=== PATIENT | male | born 1970 ===

== ENCOUNTER 2025-07-30 14:14 | Outpatient (AMB) | payer OTHER, SELFPAY ==
--- NOTE | 2025-07-30 14:15 | A.OFFPC_ITS ---
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 fam history of family lung cancer mother and sister now. 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[employer] Required: No Accompanied by: Self / Same As Patient Allergies No Known Allergies Allergy (Verified 07/30/25 14:15) Tobacco use date assessed: 07/30/25 Dental Screening Dental Screen Date: 07/30/25 Did you have a dental visit in the last 12 months?: Yes Did you have a dental problem in the last 6 months where you did not have access to dental care?: No Was dental information given to patient?: Patient has dentist HPI HPI Comments History of Present Illness Details History of Present Illness The patient is a 54-year-old male presenting for establishment of care with a new primary care physician. Patient was rude and abruptly got up and left because he was upset that I was asking about his past medical history and the medication he is taking he just stormed out of the room and left. [facility] Family History (Updated 07/30/25 @ 14:23 by Bonnie Dean MA) Father Cancer Mother Lung cancer Social History (Updated 07/30/25 @ 14:25 by Bonnie Dean MA) Housing: Apartment Alcohol intake: current Alcohol intake frequency: does not drink Patient Tobacco Use Status: Current everyday Tobacco user Cigarettes Per Day: 15 Substance Use Type: Marijuana service: No Current occupational status: employed Cognitive needs: No Hearing needs: No Vision needs: Yes (rx glasses) Questionnaire PHQ-9 Over the last 2 weeks, how often have you been bothered by any of the following problems? 1. Little interest or pleasure in doing things: not at all 2. Feeling down, depressed, or hopeless: not at all 3. Trouble falling or staying asleep, or sleeping too much: not at all 4. Feeling tired or having little energy: not at all 5. Poor appetite or overeating: not at all 6. Feeling bad about yourself - or that you are a failure or have let yourself or your family down: not at all 7. Trouble concentrating on things, such as reading the newspaper or watching television: not at all 8. Moving or speaking so slowly that other people could have noticed. Or the opposite - being so fidgety or restless that you have been moving around a lot more than usual: not at all 9. Thoughts that you would be better off or of hurting yourself in some way: not at all Total score: 0 Depression Screening Interpretation: Negative Depression Screening Done: Yes Source: Developed by Drs. Yaakov Trujillo, Tracy Milner, Gonzales Nichole and colleagues, with an educational suraj from [employer]. Thrive Questionnaire Date Thrive assessed: 07/30/25 I am a: Patient What is your living situation today?: I have a steady place to live Within the past 12 months, did the food you bought not last and you didn't have the money to get more?: Never true Within the past 12 months, did you worry whether your food would run out before you got money to buy more?: Never true Do you have trouble paying for medicines?: I choose not to answer this question Do you have trouble getting transportation to medical appointments?: No Do you have trouble paying your heating and electricity bill?: I choose not to answer this question Do you have trouble taking care of your child, family member or friend?: No Do you have trouble with day-to-day activities such as bathing, preparing meals, shopping, managing finances, etc.?: No Are you currently unemployed and looking for a job?: No Are you interested in more education?: I choose not to answer this question Please select the resources that you would like help with: None Currently or been in a relationship where the following occur: No concerns reported THRIVE Score: 0 AUDIT C Alcohol Use Questionnaire (AUDIT-C) 1. How often do you have a drink containing alcohol?: Never 3. How often do you have six or more drinks on one occasion?: Never Total Score: 0 MARCELLUS-7 AMB Questionnaire MARCELLUS-7 Date MARCELLUS - 7 assessed: 07/30/25 Feeling nervous, anxious, or on edge: 0 = Not at all Not being able to stop or control worryin = Not at all Worrying too much about different things: 0 = Not at all Trouble relaxin = Not at all Being so restless that it is hard to sit still: 0 = Not at all Becoming easily annoyed or irritable: 0 = Not at all Feeling afraid as if something awful might happen: 0 = Not at all Total MARCELLUS-7 score (0-4 normal; 5-9 mild; 10-14 moderate; 15-21 severe): 0 Source: Developed by Drs. Yaakov Trujillo, Tracy Milner, Gonzales Nichole and colleagues, with an educational suraj from [employer]. Physical exam (Primary Care) Vital Signs: Last Vital Signs Temp 98.4 F 07/30/25 14:26 Pulse 72 07/30/25 14:26 Resp 16 07/30/25 14:26 BP 100/66 07/30/25 14:26 Pulse Ox 96 07/30/25 14:26 Oxygen Delivery Method Room Air 07/30/25 14:26 BMI result Body Mass Index 22.2 Tobacco/Smoking Status: Tobacco use Status Tobacco use date assessed 07/30/25 07/30/25 14:19 Patient Tobacco Use Status Current everyday Tobacco 07/30/25 14:29 PHQ-9: PHQ-9 Score PHQ-9: Total score 0 07/30/25 14:19 Depression Screening Interpretation: Negative Thrive Assessment: Date of Thrive Assessment Date Thrive assessed 07/30/25 07/30/25 14:19 Currently or been in a relationship where the following occur: No concerns reported Coding Level of Care Code New Pt Level 2 (53231) Diagnoses Encounter to establish care with new provider Z76.89 Aggressive behavior R46.89 Assessment & Plan Assessment & Plan (1) Encounter to establish care with new provider: Code(s): Z76.89 - Persons encountering health services in other specified circumstances (2) Aggressive behavior: Code(s): R46.89 - Other symptoms and signs involving appearance and behavior Plan
[2025-07-30 14:26] VITALS: BP 100/66; PULSE 72; RESP 16; TEMP 36.9; O2SAT 96; BMI 22.2
--- OUTSIDE RECORDS SUMMARY | 2025-07-30 16:07 | XMS_ITS | Clinical Summary ---
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 Role Phone Unavailable Primary Care Provider Unavailabl e Social History Tobacco Use Types Packs/Day Years Used Date Smoking Tobacco: Never Assessed Sex and Gender Information Value Date Recorded Sex Assigned at Not on file Legal Sex Male 1:57 PM EDT Gender Identity Not on file Sexual Orientation Not on file Obstetrics History Plan of Treatment Health Maintenance Due Date Last Done Comments DTaP,Tdap,and Td Vaccines (1 - Tdap) 1990 Hepatitis B Vaccines (1 of 3 - 19+ 3-dose series) 1990 Pneumococcal Vaccine: 50+ Ye ars (1 of 1 - PCV) 2021 Zoster Vaccines (1 of 2) 2021 Depression Screening 11/12/2024 COVID-19 Vaccine (1 - 2023-2 5 season) 2025 Influenza Vaccine (#1) 2025 HIB Vaccines Aged Out No longer eligi ble based on patient's age to complete this topic HPV Vaccines Aged Out No longer eligi ble based on patient's age to complete this topic Hepatitis A Vaccines Aged Out No long er eligible based on patient's age to complete this topic IPV Vaccines Aged Out No longer eligi ble based on patient's age to complete this topic MMR Vaccines Aged Out No longer eligi ble based on patient's age to complete this topic Meningococcal ACWY Vaccine Aged Out N o longer eligible based on patient's age to complete this topic Meningococcal B Vaccine Aged Out No l onger eligible based on patient's age to complete this topic RSV Immunization Patients Un tevin 20 months Aged Out No longer eligible b ased on patient's age to complete this topic Varicella Vaccines Aged Out No longer eligible based on patient's age to complete this topic
== END 2025-07-30 14:57 | disposition home or self-care (01) ==
LOC: HO.HMCFMS 14:15
PROVIDERS: Visit Provider Student in an Organized Health Care Education/Training Program
DX: R46.89 Other symptoms and signs involving appearance and behavior (principal); Z76.89 Persons encountering health services in other specified circumstances

== ENCOUNTER → 2025-07-30 14:14 | Outpatient (BNVA) | payer OTHER, SELFPAY | PROVIDERS: Visit Provider Student in an Organized Health Care Education/Training Program | DX: Z76.89 Persons encountering health services in other specified circumstances (principal); R46.89 Other symptoms and signs involving appearance and behavior; Z13.31 Encounter for screening for depression; Z13.39 Encounter for screening examination for other mental health and behavioral disorders | CPT/HCPCS: 99202 ==

== ENCOUNTER 2025-09-24 14:40 | Outpatient (AMB) | payer OTHER, SELFPAY ==
[2025-09-24 15:24] VITALS: BP 110/62; PULSE 77; TEMP 36.6; O2SAT 98
--- NOTE | 2025-09-24 15:24 | MHC.OFFWIV ---
Intake Vital Signs 09/24/25 15:24 Height 5 ft 10 in BMI Reason not done Patient refused/unable BP 110/62 Blood Pressure Location Lt brachial Position Sitting Pulse 77 Pulse Source Pulse Oximeter Temp 97.8 F Temp Source Oral Pulse Oximetry (%) 98 Oxygen Delivery Method Room Air Intake Visit Reasons: EP-med refill Intake Note: pt is here for refill for atorvastatin Patient Tobacco Use Status: Current everyday Tobacco user Allergies No Known Allergies Allergy (Verified 09/24/25 15:25) Do you need a note to return to daycare/school/sports/work: No HPI HPI Comments History of Present Illness Details History of Present Illness - The patient is a 54-year-old male presenting with a request for a statin medication refill. - Hyperlipidemia: The patient has been on statin therapy for six years, initially prescribed a higher dose which was later reduced to 10 mg daily. - The patient reports adherence to the medication regimen, with the current prescription running out soon. - Family history of cancer: The patient's sister was diagnosed with stage 4 lung cancer and melanoma last year, prompting a recommendation for family screening. He has an appt to [facility] with Kendell Aponte NP in January 2026. Review of Systems All systems reviewed and are unremarkable except as noted in HPI Physical Exam General: Cooperative, healthy appearing, comfortable, no acute distress and well developed Orientation: Patient oriented x3 Limitations: No limitations Head: Normal to inspection Ears: Hearing grossly normal bilaterally Nose: Normal External nose present Face and sinus: Normal facial exam Eyes: Appearance normal, both eyes and all related structures Neck: Normal visual inspection and Yes full ROM Respiratory: Normal respiratory effort and able to speak in complete sentences. Skin: No rashes or lesions noted Neuro: Patient oriented x3 Extremities: Normal to inspection [facility] Family History (Updated 07/30/25 @ 14:23 by Bonnie Dean MA) Father Cancer Mother Lung cancer Social History (Updated 07/30/25 @ 14:25 by Bonnie Dean MA) Housing: Apartment Alcohol intake: current Alcohol intake frequency: does not drink Patient Tobacco Use Status: Current everyday Tobacco user Cigarettes Per Day: 15 Substance Use Type: Marijuana service: No Current occupational status: employed Cognitive needs: No Hearing needs: No Vision needs: Yes (rx glasses) Physical Exam Vital Signs: Last Vital Signs Temp 97.8 F 09/24/25 15:24 Pulse 77 09/24/25 15:24 BP 110/62 09/24/25 15:24 Pulse Ox 98 09/24/25 15:24 Oxygen Delivery Method Room Air 09/24/25 15:24 Assessment & Plan Assessment & Plan (1) Hyperlipidemia: Code(s): E78.5 - Hyperlipidemia, unspecified Qualifiers: Hyperlipidemia type: unspecified Qualified Code(s): E78.5 - Hyperlipidemia, unspecified Plan: Patient was informed and verbally consented to the use of an ambient scribe for clinic note documentation during this visit. - Plan to refill statin prescription for 90 days with one additional refill to bridge him until the his appointment to establish care with his new PCP in January 2026 at [facility]. - Patient advised to follow up with primary care provider for ongoing management and monitoring of lipid levels. Medications: Changed From atorvastatin 5 mg PO DAILY To atorvastatin 10 mg PO DAILY 90 tabs 1RF 90 days Coding Level of Care Code Est Pt Level 3 (88846) Diagnoses Hyperlipidemia, unspecified hyperlipidemia type E78.5 Hyperlipidemia type: unspecified
--- OUTSIDE RECORDS SUMMARY | 2025-09-24 18:00 | XMS_ITS | Clinical Summary ---
Author Organization 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
--- OUTSIDE RECORDS SUMMARY | 2025-09-24 18:01 | XMS_ITS | Data Portability ---
Author Organization [facility] Address [address] [place] [address] Assessment No assessment recorded. Plan of Treatment Reminders Order Date Submit Date Provider Last Modified By Organization Details Last Modified Time Details Appointments None recor ded. Lab None recor ded. Referral None recor ded. Procedures None recor ded. Surgeries None recor ded. Imaging XR, knee, 4 or more view 2023 024 [facility], [address], [address], [place], [address], 4 15:08:31 Medication Orders None recor ded. Patient TargetsNo targets recorded. Patient InstructionsNo instructions recorded. Reason for Referral None Reported. Results Created Date Observation Date Name Description Value Unit Range Abnormal Flag Note LastModifiedBy Organization Detail LastModifiedTime 07/11/20 24 05/16/2021 imagi ng/di agnos tic resul t No observ ation record ed. [email or web address] Not Available 06/14 04:22:05 Result Notes None recorded. Problems Name Problem SNOMED Code Status Onset Date Resolution Date Notes Provider Name and Address Organization Details Recorded Time Chondromala katheryn of joint of left knee [id number] 9102 Active 2023 Peggy Swift i, PA-C [address], [place], [address], [facility] 4 15:13:46 Problem Notes None recorded. Procedures Surgical History Date Name Laterality Status Provider Name and Address Organization Details Recorded Time Shoulder Surgery completed HOLDEN ADAN [facility] 02/20/2024 14:44:48 Imaging Results None recorded. Procedure Notes None recorded. Medical Equipment None Reported. Allergies No known drug allergies Medications Name Sig Start Date Stop Date Status Note LastModified by Organization Details LastModified Time atorvastati n 10 mg tablet TAKE 1 TABLET BY MOUTH EVERY DAY active Not Available Not Available No t Available oxycodone HCl-oxycodo ne-ASA 1 every 4 - 6 hours as needed DO NOT DRIVE WHILE ON THIS MEDICATIO N 02/13 completed Statu s: 'Curr ent'; Not Available Not Available Not Available Vitals Date Recorded Body height Body mass index (BMI) Body weight Provider Name and Address Organization Details Last Updated DateTime 02/20/2024 177.8 cm 23.7 kg/m2 50419.74 g HOLDEN Jaffe [facility] 02/20/2024 14:45:24 Social History Question Answer Notes LastModified by Organizat ion Details LastModified Time Tobacco Smoking Status Former Smoker HOLDEN bonilla [facility] 02/20/2024 14:44:47 Which Illicit Or Recreational Drugs Have You Used? Marijuana Information not available 02/20/2024 When Did You Quit Smoking? 1-5yearssince lastcigarette Information not available 02/20/2024 Which Of Your Hands Is Dominant? Right Information not available 02/20/2024 Have You Ever Been Counseled For Unhealthy Alcohol Use? No Information not available 02/20/2024 What Is Your Relationship Status? Single Information not available 02/20/2024 How Many Years Have You Smoked Tobacco? 20 Information not available 02/20/2024 Sex: Unknown Functional Status Question Answer Note LastModified by Organizat ion Details LastModified Time How many times per week do you consume alcohol? Less than 1 time per week Information not available 02/20/2024 Do you use any illicit or recreational drugs? Yes Information not available 02/20/2024 Do you or have you ever used any other forms of tobacco or nicotine? Yes Information not available 02/20/2024 What is your level of alcohol consumption? Occasional Information not available 02/20/2024 Do you or have you ever used e-cigarettes or vape? Current user of electronic cigarettes Information not available 02/20/2024 Mental Status None recorded. Family History Nothing Reported. Medical History No medical history recorded. Past Encounters Encounter ID Performer Location Encounter Start Date Encounter Closed Date Diagnosis/Indication Diagnosis SNOMED-CT Code Diagnosis ICD10 Code Diagnosis IMO Codes Diagnosis Note [id number] IVAN Jimenez [address] [place] [address] 02/20/2024 14:35:20 02/20/2024 15:08:30 Pain of left knee joint [id number] 05865 M25.562 Chondromal acia of joint of left knee 2524797619 2134184 M94.262 Health Concerns Section Related Observation LastModified by Organization Detai ls LastModified Time None Recorded Concern Status LastModified by Organization Details LastModified Time None Recorded Advance Directives Directive None Recorded Payers Insurance Date Sequence Insurance Name Policy Number Policy Manjarrez Covered Member ID Manjarrez Member ID Guarantor Name 02/19/2024 1 [place] [facility] Cyrus Kelly [id number] Cyrus Kelly 03/04/2024 1 [facility] [employer] - TOGETHER (MEDICAID HMO) [id number] Cyrus Kelly [id number] Cyrus Kelly Notes Date Note Type Note Provider Name and Address Organization Details Recorded Time 02/20/2024 text/html I am seeing the patient today under the supervision of Dr. Lane who was available but who did not see the patient. HPI: 53-year-old male patient presents today for left knee pain. Denies injury. 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 He reports being evaluated for this in our office previously, no treatment. Denies previous knee surgeries. Past family, social history and review of systems has been reviewed, updated and is located in the patient s chart. X-RAYS: 4v X-rays of the Left knee were ordered, obtained and reviewed today at [facility] AP and Boyd views demonstrate mild medial compartment space narrowing bilaterally. Lateral and merchant views demonstrate mild patellofemoral space narrowing, mild lateral patellar tilt more on the right. IMPRESSION: Left knee - patellofemoral chondromalacia PLAN: Findings reviewed with the patient today. We discussed he has patellar irritability on physical exam, however, lateral degenerative meniscus tear is possible as well. His pain is intermittent in nature, he would like to monitor. Declines physical therapy or MRI. Discussed occasional anti-inflammatories as needed for pain relief. All of his concerns are addressed and he understands and agrees with the plan. Speech recognition resilient tile installer software was used to create portions of this document. An attempt at proofreading has been made to minimize errors. Please call for corrections. Peggy Unger PA-C [address], [place], [address], [facility] 02/20/2024 15:14:52
== END 2025-09-24 15:46 | disposition home or self-care (01) ==
PROVIDERS: Visit Provider Physician Assistant
DX: E78.5 Hyperlipidemia, unspecified (principal)

== ENCOUNTER → 2025-09-24 14:40 | Outpatient (BNVA) | payer OTHER, SELFPAY | PROVIDERS: Visit Provider Physician Assistant | DX: E78.5 Hyperlipidemia, unspecified (principal) | CPT/HCPCS: 99212 ==